=== PATIENT | female | born 1985 | race Caucasian/White ===

== ENCOUNTER 2024-02-12 12:11 | Emergency (ER) | payer OTHER, SELFPAY ==
--- NOTE | ~2024-02-12 | CT_ITS ---
EXAMINATION: CT abdomen pelvis wo con DATE: 02/12/2024 13:24 INDICATION: Left flank pain. Nausea and vomiting. TECHNIQUE: Computed tomography (CT) of the abdomen and pelvis was performed without intravenous contr ast. Automated exposure control and iterative reconstruction technique were employed. The dose-length product was 419.55 mGy-cm. COMPARISON: CT abdomen and pelvis 06/23/2011 FINDINGS: The visualized portions of the lung bases are clear without pneumonia or pleural effusion. The heart size is normal. No pericardial effusion. The liver, gallbladder, spleen, pancreas, and adre nal glands are normal. There is a 3 mm stone in right kidney. There is mild left hydronephrosis and h ydroureter. There is a 2 mm calcification in the expected area of distal left ureter, new from 2. There are no dilated loops of bowel. The appendix is normal. There are no pathologically enlarged lymph nodes. There is physiologic fluid in the pelvis. There is moderate lower lumbar spondylosis. IMPRESSION: 1. Mild left hydronephrosis and hydroureter. A 2 mm calcification in the expected area of distal left ureter may be a stone or phlebolith. 2. 3 mm nonobstructing right kidney stone. Reviewed, dictated and finalized at location A. [facility] [employer] IMPRESSION: 1. Mild left hydronephrosis and hydroureter. A 2 mm calcification in the expect ed area of distal left ureter may be a stone or phlebolith. 2. 3 mm nonobstructing right kidney stone.
[2024-02-12 12:33] VITALS: BP 145/94; PULSE 77; RESP 16; TEMP 37.1; O2SAT 99
[2024-02-12] MEDS: ONDANSETRON HCL ODT 4 MG TABLET PO (12:44)
[2024-02-12 12:46] LABS: BEDSIDEPREGUCG Negative (Negative)
[2024-02-12 13:02] LABS: Add Urine Microscopic? YES; Appearance Urine Clear (Clear); Bacteria Urine None Seen /hpf; Bilirubin Urine Negative (Negative); Blood Urine Negative (Negative); Color Urine Yellow (Yellow); Glucose Urine UA Negative (Negative); Ketones Urine Trace mg/dL (Negative); Leukocyte Esterase Ur Negative LEU/UL (Negative); Nitrate Urine Negative (Negative); Non Pathogenic Casts 0-2; Protein Urine Trace mg/dL (Negative); Specific Grav Ur 1.017 (1.001-1.035); Squamous Epithelial Cell Urine Occasional /hpf (Few); Urobilinogen Urine 0.2 mg/dL (<2.0); WBC Urine 0-5 /hpf (0-3)
[2024-02-12] MEDS: TAMSULOSIN HCL 0.4 MG CAPSULE PO (14:01)
[2024-02-12] MEDS: METOCLOPRAMIDE HCL INJ 10 MG/2 ML VIAL IV PUSH (14:01)
[2024-02-12] MEDS: HYDROmorphone HCL INJ (*CRX) 1 MG/ML SYR 0.5 MG IV PUSH (14:02)
[2024-02-12] MEDS: KETOROLAC 30 MG/ML VIAL (*BKC) 15 MG IV PUSH (14:04)
--- NOTE | 2024-02-12 14:45 | ED.FEMALEGU ---
HPI - Female Genitourinary General Chief complaint: Urogenital-Female Stated complaint: left flank pain, vomiting Time Seen by Provider: 02/12/24 12:32 History of Present Illness HPI Narrative: Patient presenting with left flank pain, pain with urination. Being treated for possible infection. Never had any history of kidney stones Related Data Allergies Allergy/AdvReac Type Severity Reaction Status Date / Time amoxicillin Allergy Rash Verified 02/12/24 12:44 Review of Systems Review of Systems: All systems reviewed & are unremarkable except as noted in HPI and below Exam Narrative: EXAMINATION OF ORGAN SYSTEMS/BODY AREAS: Constitutional: Vital signs per nursing GENERAL:[No acute distress, non-toxic appearing.] HEAD: Normal with no signs of head trauma. EYES: EOMI, conjunctiva normal ENT: Hearing grossly intact LUNGS: Nonlabored breathing. HEART: [Regular rate and rhythm] ABD: Left flank tenderness EXT: Normal range of motion SKIN: [No rashes or lesions.] NEURO: [Alert and oriented x 3. No gross focal sensory or strength deficits.] PSYCH: Normal affect Course Vital Signs Vital signs: Vital Signs Temperature 98.7 F 02/12/24 12:33 Pulse Rate 77 02/12/24 12:33 Respiratory Rate 16 02/12/24 12:33 Blood Pressure 145/94 H 02/12/24 12:33 Pulse Oximetry 99 02/12/24 12:33 Oxygen Delivery Room Air 02/12/24 12:33 Temperature 98.7 F 02/12/24 12:33 Pulse Rate 77 02/12/24 12:33 Respiratory Rate 16 02/12/24 12:33 Blood Pressure 145/94 H 02/12/24 12:33 Pulse Oximetry 99 02/12/24 12:33 Oxygen Delivery Room Air 02/12/24 12:33 MDM - Female Genitourinary MDM Narrative Medical decision making narrative: ED COURSE AND MEDICAL DECISION MAKINF presenting to the emergency department for acute flank pain, symptoms are concerning for likely renal colic versus pyelonephritis. Urinalysis is ordered. Different ordered however patient still nauseous and throwing up, I did therefore order IV fentanyl and Reglan with improvement in her symptoms. CT scan of the abdomen/pelvis is ordered. Labs are remarkable for: No obvious UTI but there is blood. CT scan of the abdomen/pelvis is reviewed by myself and interpreted by radiology: 2 mm distal stone. On reevaluation, the patient still having some pain but appears more comfortable. Toradol given with more improvement in symptoms Patient is strongly advised to return to the emergency department for any increasing pain not improving with medications, persistent nausea vomiting, fevers or chills or for any other concerns. Patient is comfortable with this plan and was discharged in fair condition. Lab Data Labs: Lab Results 02/12/24 Range/Units 12:45 Urine Color Yellow (Yellow) Urine Appearance Clear (Clear) Urine pH 6.0 (5.0-9.0) Ur Specific [place] 1.017 (1.001-1.035) Urine Protein Trace (Negative) mg/dL Urine Glucose (UA) Negative (Negative) mg/dL Urine Ketones Trace H (Negative) mg/dL Ur Blood (Man) Negative (Negative) Urine Nitrate Negative (Negative) Urine Bilirubin Negative (Negative) Urine Urobilinogen 0.2 (<2.0) mg/dL Leukocyte Esterase Rfl Negative (Negative) BUBBA/UL Urine RBC 3-5 H (0-2) /hpf Urine WBC 0-5 (0-3) /hpf Ur Squamous Epith Cells Occasional (Few) /hpf Urine Bacteria None seen /hpf Urine Casts 0-2 POC Urine HCG, Qual Negative (Negative) Discharge Plan Discharge Clinical Impression: Kidney stone Patient Disposition: Home, Self-Care Condition: Stable Instructions: Kidney Stones (ED) Additional Instructions: Please follow-up with the urologist and return to the ER for any further issues, especially if you are unable to eat keep anything down, or if your pain returns or worsens. Prescriptions: New ondansetron 4 mg tablet,disintegrating 4 mg PO Q8H PRN (Reason: nausea and vomiting) Qty: 10 0RF ketorolac 10 mg tablet 10 mg PO Q8H PRN (Reason: pain) Qty: 20 0RF Rx Instructions: maximum total duration of 5 days from all oral, intranasal, or parenteral formulations tamsulosin [Flomax] 0.4 mg capsule 0.4 mg PO DAILY Qty: 14 0RF Follow-up/Referrals: PHYSICIAN NOT ON STAFF,NONSTAFF [Primary Care Provider] - Gulshan Reveles MD [Physician] - 2 Days
== END 2024-02-12 14:52 | disposition home or self-care (01) ==
PROVIDERS: Emergency Provider Emergency Medicine
DX: N20.0 Calculus of kidney (principal); N13.30 Unspecified hydronephrosis
CPT/HCPCS: 74176; 81001; 81025; 96374; 96375; 99284; A9270; J1171; J1885; J2765